=== PATIENT | female | born 1985 | race Caucasian/White ===

== ENCOUNTER 2022-07-07 16:20 | Emergency (ER) | payer OTHER ==
[~2022-07-07] VITALS: Ht 162.6 cm; Wt 80.3 kg
--- OUTSIDE RECORDS SUMMARY | 2022-07-07 16:22 | XMS ---
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 EJong VISIT COUNT (12 MO.) 1 CLARA Castillo TOTAL 1 NOTE: Visits indicate total known visits. ED/UCC VISIT TRACKING (12 MO.) 07/07/2022 16:21 CLARA Romo OR TYPE: Emergency COMPLAINT: - SORE THROAT INPATIENT VISIT TRACKING (12 MO.) No inpatient visits to display in this time frame [email or web address]
[2022-07-07] MEDS ORDERED: QSYMIA 7.5 MG-1 EACH PO (19:18)
== END 2022-07-07 21:01 | disposition home or self-care (01) ==
LOC: ED 16:20
DX: J02.9 Acute pharyngitis, unspecified (principal); Z88.8 Allergy status to other drugs, medicaments and biological substances; Z88.5 Allergy status to narcotic agent; Z79.899 Other long term (current) drug therapy
CPT/HCPCS: 36415; 70491; 80053; 85025; 85060; 99283-25; A9270; Q9967